=== PATIENT | male | born 1990 | race Native Hawaiian/Other Pacific Islander ===

== ENCOUNTER 2018-08-07 16:44 | Emergency (ER) | payer OTHER ==
[~2018-08-07] VITALS: Ht 177.8 cm; Wt 108.9 kg
[~2018-08-07 16:44] MED LIST: ADDERALL10 MG OR
[2018-08-07 16:49] VITALS: TEMP 97.7
[2018-08-07 18:32] VITALS: BP 133/72
== END 2018-08-07 18:32 | disposition home or self-care (01) ==
LOC: ED 16:44
DX: S70.11XA Contusion of right thigh, initial encounter (principal); V03.00XA Pedestrian on foot injured in collision with car, pick-up truck or van in nontraffic accident, initial encounter; Y93.89 Activity, other specified
CPT/HCPCS: 99282

== ENCOUNTER 2020-01-12 10:09 | Emergency (ER) | payer OTHER ==
[~2020-01-12] VITALS: Ht 177.8 cm; Wt 122.5 kg
[2020-01-12 10:58] LABS: PLATELET COUNT 248 K/uL (142-355); POTASSIUM 4.2 mmol/L (3.6-5.2)
[2020-01-12 11:44] VITALS: BP 139/86; TEMP 98.1
== END 2020-01-12 11:44 | disposition home or self-care (01) ==
LOC: ED 10:09
PROVIDERS: Emergency Medicine
DX: T59.811A Toxic effect of smoke, accidental (unintentional), initial encounter (principal); J70.5 Respiratory conditions due to smoke inhalation; F17.210 Nicotine dependence, cigarettes, uncomplicated; Y92.89 Other specified places as the place of occurrence of the external cause
CPT/HCPCS: 36600; 80053; 82805; 85027; 99283

== ENCOUNTER 2022-10-29 00:50 | Emergency (ER) | payer BC ==
[~2022-10-29] VITALS: Ht 177.8 cm; Wt 114.8 kg
[2022-10-29 03:35] VITALS: BP 128/87; TEMP 98.9
== END 2022-10-29 03:35 | disposition home or self-care (01) ==
LOC: ED 00:50
DX: M54.59 Other low back pain (principal); X50.1XXA Overexertion from prolonged static or awkward postures, initial encounter; Y93.53 Activity, golf; Y92.89 Other specified places as the place of occurrence of the external cause
CPT/HCPCS: 96372; 99283; J1885; J2360